=== PATIENT | male | born 1940 | race Caucasian/White ===

== ENCOUNTER → 2020-06-23 | Outpatient (CLI) | payer MEDICARE, OTHER ==
[~2020-06-23] MED LIST: ALLO100T30 PO; ATEN100T PO; CHOL10003 PO; CYAN100028 PO; DIGO125T85 PO; HYDR25TA6 PO; LISI-170 PO; LISI40TA PO; MULT-658 PO; NITR0.4T28 SL; OMEG1CAP23 PO; PSYL1POW PO; SIMV10TA18 PO; TRAZ-175 PO; WARF2TAB99 PO; [UNRECOGNIZED DRUG - CODE] DT
== END | disposition home or self-care (01) ==
LOC: STAR 13:44
PROVIDERS: ATTEND Urology
DX: Z01.818 Encounter for other preprocedural examination (principal); N20.0 Calculus of kidney; I48.91 Unspecified atrial fibrillation; Z20.828 Contact with and (suspected) exposure to other viral communicable diseases
CPT/HCPCS: 87635; 93005

== ENCOUNTER 2020-06-28 13:16 | Day surgery (SDC) | payer MEDICARE, OTHER ==
[~2020-06-28] VITALS: Ht 176.5 cm; Wt 70.7 kg
[2020-06-28 13:54] VITALS: BP 184/85
[2020-06-28] MEDS ORDERED: CHLORHEXIDINE 15 ML UDC ONE (14:00)
[2020-06-28] MEDS ORDERED: CHLORHEXIDINE 15 ML UDC MM ONE (14:00)
[2020-06-28] MEDS ORDERED: LACTATED RINGERS 1,000 ML IV SCH (14:00)
[2020-06-28 15:00] LABS: INTERNATIONAL NORMALIZED RATIO 1.14 (0.93-1.1); PROTHROMBIN TIME 12.1 Seconds (9.6-11.5)
[2020-06-28] MEDS ORDERED: FENTANYL PF 100 MCG/2ML ONE (15:51)
[2020-06-28] MEDS ORDERED: ONDANSETRON 2MG/ML, 2ML ONE (15:52)
[2020-06-28] MEDS ORDERED: CEFAZOLIN 1,000 MG ONE (15:52)
[2020-06-28] MEDS ORDERED: PROPOFOL 10 MG/ML, 20ML ONE (15:52)
[2020-06-28] MEDS ORDERED: hydrALAzine 20 MG/ML, 1ML IV PRN (16:30)
[2020-06-28] MEDS ORDERED: METOPROLOL 1 MG/ML, 5ML IV PRN (16:30)
[2020-06-28] MEDS ORDERED: FENTANYL PF 100 MCG/2ML IV PRN (16:30)
[2020-06-28] MEDS ORDERED: LABETALOL 5MG/ML, 20ML IV PRN (16:30)
[2020-06-28] MEDS ORDERED: ONDANSETRON 2MG/ML, 2ML IVPush PRN (16:30)
[2020-06-28] MEDS ORDERED: OXYcodone 5 MG/5 ML ORAL.SOL UDC PO PRN (16:30)
[2020-06-28] MEDS ORDERED: PROMETHAZINE 25 MG/ML, 1ML IVPush PRN (16:30)
[2020-06-28] MEDS ORDERED: ACETAMINOPHEN 325 MG TABLET PO PRN (16:30)
[2020-06-28] MEDS ORDERED: PROMETHAZINE 25 MG SUPP PR PRN (16:30)
[2020-06-28] MEDS ORDERED: NITROGLYCERIN SINGLE TAB 0.4 MG SL SCH (17:00)
[2020-06-28] MEDS ORDERED: TRAZODONE 100MG TABLET PO SCH (21:00)
[2020-06-28] MEDS ORDERED: LISINOPRIL 20 MG TABLET PO SCH (21:00)
[2020-06-28] MEDS ORDERED: SIMVASTATIN 10 MG TABLET PO SCH (21:00)
[2020-06-29] MEDS ORDERED: WARFARIN 2 MG TABLET PO-COUM ONE (09:00)
[2020-06-29] MEDS ORDERED: DIGOXIN 0.125 MG TABLET PO SCH (09:00)
[2020-06-29] MEDS ORDERED: CHOLECALCIFEROL 1,000 UNIT TABLET PO SCH (09:00)
[2020-06-29] MEDS ORDERED: LISINOPRIL 40 MG TABLET PO SCH (09:00)
[2020-06-29] MEDS ORDERED: MULTIVITAMIN 1 TABLET PO SCH (09:00)
[2020-06-29] MEDS ORDERED: ALLOPURINOL 100 MG TABLET PO SCH (09:00)
[2020-06-29] MEDS ORDERED: ATENOLOL 100 MG TABLET PO SCH (09:00)
[2020-06-29] MEDS ORDERED: HYDROCHLOROTHIAZIDE 25 MG TABLET PO SCH (09:00)
== END 2020-06-28 19:10 | disposition home or self-care (01) ==
LOC: OUT 13:16
PROVIDERS: ATTEND Urology
DX: N20.0 Calculus of kidney (principal); I10 Essential (primary) hypertension; I25.10 Atherosclerotic heart disease of native coronary artery without angina pectoris; I25.2 Old myocardial infarction; I48.91 Unspecified atrial fibrillation; Z79.01 Long term (current) use of anticoagulants; Z79.899 Other long term (current) drug therapy; Z87.442 Personal history of urinary calculi
CPT/HCPCS: 36415; 50590; 85610; 85730; J0690; J2405; J2704; J3010; J7120